=== PATIENT | male | born 1995 | race Caucasian/White ===

== ENCOUNTER 2016-08-02 19:15 | Emergency (ER) | payer OTHER | END 2016-08-02 20:02 | disposition left against medical advice (07) | LOC: ED 19:15 | DX: Z53.21 Procedure and treatment not carried out due to patient leaving prior to being seen by health care provider (principal) ==

== ENCOUNTER 2018-06-01 08:06 | Emergency (ER) | payer MEDICAID ==
[~2018-06-01] VITALS: Ht 177.8 cm; Wt 105.2 kg
[2018-06-01 08:15] VITALS: Ht 177.8 cm; Wt 105.2 kg
[2018-06-01 10:14] LABS: CALCIUM 8.6 mg/dL (8.5-10.1); CARBON DIOXIDE 29.8 mmol/L (21-32); CHLORIDE SERUM 104 mmol/L (98-107); CREATININE SERUM 0.8 mg/dL (0.7-1.3); GFR1 > 60 mL/min; GLUCOSE SERUM 116 mg/dL (74-106); POTASSIUM SERUM 4.1 mmol/L (3.5-5.1); SODIUM SERUM 134 mmol/L (136-145)
[2018-06-01 10:17] LABS: PLATELET COUNT 266 x10^3mcL (130-400); RED CELL DISTRIBUTION WIDTH 11.6 % (11.5-14.5)
[2018-06-01 10:25] LABS: ALBUMIN 3.9 g/dL (3.4-5.0); ALKALINE PHOSPHATASE 76 U/L (46-116); ALT/SGPT 117 U/L (16-63); AMYLASE 43 U/L (25-115); AST/SGOT 35 U/L (15-37); BILIRUBIN TOTAL 0.38 mg/dL (0.20-1.00); LIPASE 163 IU/L (73-393); TOTAL PROTEIN, SERUM 7.6 g/dL (6.4-8.2)
[2018-06-01 10:55] VITALS: BP 125/86
== END 2018-06-01 10:55 | disposition home or self-care (01) ==
LOC: ED 08:06
PROVIDERS: Specialist
DX: R10.32 Left lower quadrant pain (principal); R10.12 Left upper quadrant pain
CPT/HCPCS: 36415

== ENCOUNTER 2019-07-11 08:15 | Emergency (ER) | payer OTHER ==
[~2019-07-11] VITALS: Ht 177.8 cm; Wt 104.3 kg
[2019-07-11 08:28] VITALS: Ht 177.8 cm; Wt 104.3 kg
[2019-07-11 10:15] VITALS: BP 132/76
== END 2019-07-11 10:15 | disposition home or self-care (01) ==
LOC: ED 08:15
DX: J40 Bronchitis, not specified as acute or chronic (principal); J02.9 Acute pharyngitis, unspecified; R04.2 Hemoptysis

== ENCOUNTER 2019-12-29 14:42 | Emergency (ER) | payer OTHER ==
[~2019-12-29] VITALS: Ht 177.8 cm; Wt 105.7 kg
[2019-12-29 15:10] VITALS: BP 138/68; Ht 177.8 cm; Wt 105.7 kg
== END 2019-12-29 16:33 | disposition home or self-care (01) ==
LOC: ED 14:42
DX: S93.402A Sprain of unspecified ligament of left ankle, initial encounter (principal); X58.XXXA Exposure to other specified factors, initial encounter; Y93.66 Activity, soccer; Y92.322 Soccer field as the place of occurrence of the external cause; Y99.8 Other external cause status
CPT/HCPCS: Q0092

== ENCOUNTER 2020-05-14 10:31 | Emergency (ER) | payer OTHER ==
[~2020-05-14] VITALS: Ht 177.8 cm; Wt 106.6 kg
[2020-05-14 10:43] VITALS: BP 139/81; Ht 177.8 cm; Wt 106.6 kg
== END 2020-05-14 11:00 | disposition home or self-care (01) ==
LOC: ED 10:31
DX: B35.1 Tinea unguium (principal)